=== PATIENT | male | born 1940 | race Caucasian/White ===

== ENCOUNTER 2017-02-10 13:05 | Emergency (ER) | payer MEDICARE, BC ==
--- NOTE | 2017-02-10 14:37 | UC ---
Respiratory Complaint HPI - HPI Summary HPI Summary: Started URI Sx last weekend. Started tapering off, but the last 4 days has felt a "gurgle" in the right anterior lung field and then will subsequently cough up some white mucus and the "gurgling" will go away. - History of Current Complaint Chief Complaint: UCRespiratory Stated Complaint: ELVER, COUGH Time Seen by Provider: 02/10/17 14:31 Hx Obtained From: Patient Onset/Duration: Gradual Onset, Lasting Weeks - 1, Still Present - with ongoing cough. Severity Initially: Moderate Severity Currently: Moderate Character: Cough: Productive Aggravating Factors: Nothing Alleviating Factors: Nothing Associated Signs And Symptoms: Positive: URI, Nasal Congestion. Negative: Dyspnea, Fever, Chills, Pleuritic Chest Pain, Wheezing, Hemoptysis, Hoarseness, Sinus Discomfort - Allergies/Home Medications Allergies/Adverse Reactions: Allergies Allergy/AdvReac Type Severity Reaction Status Date / Time Sulfa Antibiotics Allergy Unknown Verified 02/10/17 14:15 Reaction Details Home Medications: Home Medications Hydrochlorothiazide TAB* [Hydrodiuril TAB*] 25 mg PO DAILY 02/10/17 [History Confirmed 02/10/17] Irbesartan (NF) [Avapro (NF)] 300 mg PO DAILY 02/10/17 [History Confirmed ] Minocycline (NF) 100 mg PO BID 02/10/17 [History Confirmed 02/10/17] Omeprazole CAP* [Prilosec CAP* 20 MG] 20 mg PO DAILY 02/10/17 [History Confirmed 02/10/17] Simvastatin TAB(NF) [Zocor 20 MG (NF)] 20 mg PO DAILY 02/10/17 [History Confirmed 02/10/17] PMH/Surg Hx/FS Hx/Imm Hx Endocrine History: Dyslipidemia Cardiovascular History: Hypertension - Surgical History Surgical History: Yes Surgery Procedure, Year, and Place: R shoulder - Family History Known Family History: Positive: Diabetes Negative: Cardiac Disease, Hypertension - Social History Occupation: Retired Lives: With Family Alcohol Use: Occasionally Substance Use Type: None Smoking Status (MU): Former Smoker When Did the Patient Quit Smoking/Using Tobacco: 35 years ago Review of Systems ENT: Nasal Discharge Respiratory: Cough Is Patient Immunocompromised?: No All Other Systems Reviewed And Are Negative: Yes Physical Exam Triage Information Reviewed: Yes Appearance: Well-Appearing, No Pain Distress, Well-Nourished Vital Signs: Initial Vital Signs Temp 98.1 F 02/10/17 14:17 Pulse 65 02/10/17 14:17 Resp 18 02/10/17 14:17 BP 146/59 02/10/17 14:17 Pulse Ox 99 02/10/17 14:17 Vital Signs Reviewed: Yes Eyes: Positive: Conjunctiva Clear ENT: Positive: Pharynx normal, TMs normal Neck exam: Normal Respiratory: Positive: Wheezing - inspiratory wheezes predominantly on the right side, both anterior and posterior. Cardiovascular Exam: Normal Musculoskeletal Exam: Normal Neurological Exam: Normal Psychological Exam: Normal Skin Exam: Normal UC Diagnostic Evaluation - Laboratory O2 Sat by Pulse Oximetry: 99 Respiratory Course/Dx - Differential Dx/Diagnosis Differential Diagnosis/HQI/PQRI: Asthma, Lower Resp Infection, Sinusitis Provider Diagnoses: Acute URI. Acute bronchospasm Discharge - Discharge Plan Condition: Stable Disposition: HOME Prescriptions: predniSONE TAB* [Deltasone TAB*] 20 mg PO DAILY #18 tab Patient Education Materials: Upper Respiratory Infection (ED), Bronchospasm (ED ), Prednisone (By mouth) Referrals: Arie MOORE,Alber Liu [Primary Care Provider] -
--- NOTE | 2017-02-10 15:26 | RAD ---
INDICATION: Right-sided wheezing COMPARISON: None TECHNIQUE: PA and lateral views of the chest were obtained. FINDINGS: The heart and mediastinum are normal in size and contour. Coarse density overlying the right hilum measuring 9 x 20 mm in the AP view is consistent with calcified granulomas of right hilar lymph nodes. The lungs are grossly clear. There is no evidence of large pleural effusion. Visualized bones are normal for the patient's age. There is no radiographic evidence of free air beneath the diaphragm IMPRESSION: No radiographic evidence of acute cardiopulmonary disease.
== END 2017-02-10 15:12 | disposition home or self-care (01) ==
LOC: UCCORT 13:05
DX: J06.9 Acute upper respiratory infection, unspecified (principal); J98.01 Acute bronchospasm; E78.5 Hyperlipidemia, unspecified; I10 Essential (primary) hypertension; Z88.2 Allergy status to sulfonamides; Z87.891 Personal history of nicotine dependence
CPT/HCPCS: 71020; 99202; G0463

== ENCOUNTER 2017-07-27 12:17 | Emergency (ER) | payer MEDICARE, BC ==
[2017-07-27 12:42] VITALS: BP 138/58
--- NOTE | 2017-07-27 12:54 | UC ---
Back Pain HPI - HPI Summary HPI Summary: 76 y/o male presents to the urgent care c/o left side mid back pain for the past 2 weeks. Pt states pain is sharp 8/10 and intermittent and triggered by movement and radiating to the left side of ribs. He thought it was triggered by mowing his yard, but now is disturbing his sleep. When he turns pain is exacerbated. He has not taking anything to alleviate symptoms. Pt denies any trauma or Hx of back problems. Pt denies numbness or tingling over the extremities, flank pain, urinary symptoms, saddle anesthesia, urinary or fecal incontinences, SOB, chest pain, abdominal pain, N/V/D. - History of Current Complaint Hx Obtained From: Patient Onset/Duration: Gradual Onset, Lasting Weeks - last wekk Timing: Intermittent, Lasting Weeks - 2 weeks Severity Initially: Mild Severity Currently: Moderate Pain Intensity: 8 Pain Scale Used: 0-10 Numeric Back Pain: Is Discrete @ - LF side of mid back Character: Sharp, Spasmodic Aggravating Factor(s): Movement Alleviating Factor(s): Rest Associated Signs And Symptoms: Positive: Negative. Negative: Swelling, Redness , Bruising, Fever, Weakness, Numbness, Tingling, Abdominal Pain, Flank Pain, Bladder Incontinence, Bowel Incontinence, Weight Loss, Pain with Weight Bearing - Risk Factors AAA Risk Factors: Negative TAD Risk Factors: Negative Cauda Equina Risk Factors: Negative Epidural Abscess Risk Factors: Negative <Alyssa Wagner - Last Filed: 07/27/17 14:32> <Lennie Kirkland - Last Filed: 07/29/17 09:34> - History of Current Complaint Chief Complaint: UCBackPain Stated Complaint: BACK PAIN Time Seen by Provider: 07/27/17 12:53 - Allergies/Home Medications Allergies/Adverse Reactions: Allergies Allergy/AdvReac Type Severity Reaction Status Date / Time Sulfa (Sulfonamide Allergy Unknown Verified 07/27/17 12:45 Antibiotics) Reaction Details PMH/Surg Hx/FS Hx/Imm Hx Previously Healthy: Yes Endocrine History: Dyslipidemia Cardiovascular History: Hypertension GI/ History: Gastroesophageal Reflux - Surgical History Surgical History: Yes Surgery Procedure, Year, and Place: R shoulder - Family History Known Family History: Positive: Diabetes Negative: Cardiac Disease, Hypertension - Social History Occupation: Employed Part-time Lives: With Family Alcohol Use: Occasionally Substance Use Type: None Smoking Status (MU): Former Smoker When Did the Patient Quit Smoking/Using Tobacco: 35 years ago <Alyssa Wagner - Last Filed: 07/27/17 14:32> Review of Systems Constitutional: Negative Skin: Negative Eyes: Negative ENT: Negative Respiratory: Negative Cardiovascular: Negative Gastrointestinal: Negative Genitourinary: Negative Motor: Negative Neurovascular: Negative Musculoskeletal: Decreased ROM - mid back, Other: - acute left side mid back pain Neurological: Negative Psychological: Negative Is Patient Immunocompromised?: No All Other Systems Reviewed And Are Negative: Yes <Alyssa Wagner - Last Filed: 07/27/17 14:32> Physical Exam - Summary Physical Exam Summary: Vital Signs Reviewed: Yes Appearance: Well-Appearing, Well-Nourished, male sitting in the examining table w/o any apparent distress. Eyes: Positive: Conjunctiva Clear - PERRLA, EOMI. ENT: Positive: Normal ENT inspection, Hearing grossly normal, Pharynx normal, TMs normal, Uvula midline Neck: Positive: Supple, Nontender, No Lymphadenopathy Respiratory: Positive: Chest non-tender, Lungs clear, Normal breath sounds, No respiratory distress Cardiovascular: Positive: RRR, No Murmur, Pulses Normal, Brisk Capillary Refill Abdomen Description: Positive: Nontender, No Organomegaly, Soft. Negative: CVA Tenderness (R), CVA Tenderness (L) Bowel Sounds: Positive: Present Musculoskeletal: Positive: Strength Intact, BACK: Patient walked into the urgent care room with symmetric ambulation, No signs of limping, antalgic, able to bear weight. No signs of trauma, No masses palpated. Point tenderness at the left side of mid back around Ribs 10 and 12. No CVAT, no flank ecchymosis . No sacroiliac notch tenderness, No saddle anesthesia.ROM: limited due to pain, Straight Leg Raise: negative. Patellar reflexes: brisk, symmetric Muscle strength lower extremities. Dorsiflexion/ plantar flexion of ankles. Heel/ toe walk. Lower extremities: Femoral, popliteal, posterior tibial, and dorsalis pedis pulses WNL. Pt refuse rectal exam Neurological: Positive: Alert, Muscle Tone Normal Psychological Exam: Normal Skin Exam: Normal Triage Information Reviewed: Yes Vital Signs: Initial Vital Signs Temp 98.1 F 05/19/18 12:37 Pulse 61 07/27/17 12:37 Resp 17 07/27/17 12:37 BP 138/58 07/27/17 12:37 Pulse Ox 99 07/27/17 12:37 <Deshpande-LaytonAlyssa davalos - Last Filed: 07/27/17 14:32> Vital Signs: Initial Vital Signs Temp 98.1 F 07/27/17 12:37 Pulse 61 07/27/17 12:37 Resp 17 07/27/17 12:37 BP 138/58 07/27/17 12:37 Pulse Ox 99 07/27/17 12:37 <Lennie Kirkland - Last Filed: 07/29/17 09:34> Back Pain Course/Dx - Course Course Of Treatment: 76 y/o male presents to the urgent care c/o left side mid back pain for the past 2 weeks. Pt states pain is sharp 8/10 and intermittent and triggered by movement and radiating to the left side of ribs. He thought it was triggered by mowing his yard, but now is disturbing his sleep. When he turns pain is exacerbated. He has not taking anything to alleviate symptoms. Pt denies any trauma or Hx of back problems. Pt denies numbness or tingling over the extremities, flank pain, urinary symptoms, saddle anesthesia, urinary or fecal incontinences, SOB, chest pain, abdominal pain, N/V/D. Hx obtained. Pt w/ point tenderness at the left side of mid back around Ribs 10 and 12 the rest of PE is WNL. Thoracolumbar X-ray and LF ribs X-ry ordered, Impression: Multilevel degenerative disc disease and osteorthritis, no pneumothrorax o rib fracture observed as per radiologist. Pt Rx Naproxen PO, flexeril PO and given a PT referral. Patient was instructed to the f/u [facility] orthopedic Dr Rodriguez in 1 week if symptoms do not improve or worsen. Patient understands and agrees. Patient is able to ambulate freely w/o aid or limp. Plan of care was discussed with the patient and patient understands and agrees. All questions were answered at patient satisfaction. Pt left clinic hemodynamically stable. - Differential Dx/Diagnosis Differential Diagnosis/HQI/PQRI: Arthritis, Fracture, Herniated Disc, Strain, Sprain Provider Diagnoses: 1- Acute mid back pain. 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 3- Muscle spams <Aylssa Wagner - Last Filed: 07/27/17 14:32> Discharge - Sign-Out/Discharge Documenting (check all that apply): Discharge/Admit/Transfer - D/C home - Billing Disposition and Condition Condition: STABLE Disposition: HOME <Alyssa Wagner - Last Filed: 07/27/17 14:32> - Billing Disposition and Condition Condition: STABLE Disposition: HOME <Lennie Kirkland - Last Filed: 07/29/17 09:34> - Discharge Plan Condition: Stable Disposition: HOME Prescriptions: Cyclobenzaprine TAB* [Flexeril 10 MG TAB*] 10 mg PO TID PRN #15 tab PRN Reason: Spasms - Back Naproxen TAB* [Naprosyn 250 mg TAB*] 250 mg PO Q8H PRN #30 tab PRN Reason: Pain Patient Education Materials: Back Pain (ED), Degenerative Disc Disease (ED) Referrals: Surendra Rodriguez MD [Medical Doctor] - 1 Week Carlin Ramsey DO [Primary Care Provider] - 1 Week Additional Instructions: 1- Please take Naproxen PO as directed after meals for pain. 2- Take Flexeril PO as directed for muscle spasm. Please do not drive while taking the medication. 3- Wear a back support. Avoid strenuous exercise of heavy lifting. 4- Please follow up with Orthopedic Dr Rodriguez or your PCP in 1 week if not improvement of symptoms, for further management. Attestation Statement User Type: Provider - I was available for consult. This patient was seen by the ANNAMARIE. The patient was not presented to, seen by, or examined by me. -Jes <Lennie Kirkland - Last Filed: 07/29/17 09:34>
--- NOTE | 2017-07-27 14:03 | RAD ---
HISTORY: Acute left lower rib pain COMPARISONS: None VIEWS: 6, Frontal view of the chest with frontal and oblique views of the left hemithorax FINDINGS: There is no displaced rib fracture or pneumothorax. The visualized lungs are clear. IMPRESSION: NO DISPLACED RIB FRACTURE OR PNEUMOTHORAX.
--- NOTE | 2017-07-27 14:04 | RAD ---
HISTORY: Acute mid back pain COMPARISONS: Chest x-ray dated February 10, 2017 VIEWS: 2, Frontal and lateral views of the thoracolumbar junction . FINDINGS: ALIGNMENT: The alignment is normal. VERTEBRAL BODIES: There is multilevel anterolateral marginal osteophyte formation. The vertebral bodies are preserved in height. JOINTS: There is facet osteoarthritis. INTERVERTEBRAL DISCS: There is diffuse loss of intervertebral disc height. SOFT TISSUE: Unremarkable OTHER: The visualized lungs are clear. IMPRESSION: DEGENERATIVE DISC DISEASE AND OSTEOARTHRITIS.
== END 2017-07-27 14:44 | disposition home or self-care (01) ==
LOC: UCCORT 12:17
DX: M54.6 Pain in thoracic spine (principal); M47.9 Spondylosis, unspecified; M62.830 Muscle spasm of back; Z87.891 Personal history of nicotine dependence; Z88.2 Allergy status to sulfonamides
CPT/HCPCS: 72080; 99212; G0463

== ENCOUNTER 2019-03-09 13:47 | Emergency (ER) | payer MEDICARE, BC ==
--- OUTSIDE RECORDS SUMMARY | 2019-03-09 13:53 | XMS REPORT | Continuity of Care Document ---
:1940 External Reference #:[id number] Author Name Carlin Santizo DO Address [address] [place] [id number] Problems Active Problems Provider Date Benign essential hypertension Alber Sargent MD Onset: 05/07/2005 Mixed hyperlipidemia Alber Sargent MD Onset: 05/07/2005 Mitral valve disorder Alber Sargent MD Onset: 05/07/2005 Essential hypertension Jeremy Lutz MD Onset: 01/25/2015 Ischemic heart disease screening Jeremy Lutz MD Onset: 01/21/2013 Pure hypercholesterolemia Jeremy Lutz MD Onset: 01/21/2013 Mitral leaflet abnormality Efe Green MD Onset: 09/07/2016 Social History Type Date Description Comments Sex Unknown ETOH Use Occasionally consumes alcohol Tobacco Use Start: Unknown End: Unknown Patient is a former smoker Smoking Status Reviewed: 01/30/19 Patient is a former smoker Allergies, Adverse Reactions, Alerts Active Allergies Reaction Severity Comments Date Sulfa Drugs 07/10/2014 Medications Active Medications SIG Qnty Indications Ordering Date Provider Sildenafil Citrate Take 1 Tablet 6tabs Santizo, 04/21/2018 100mg Tablets By Mouth Every Carlin, DO Day as Needed Omeprazole Take 1 Capsule 180caps Santizo, 02/21/[address] Twice A Day DO Carlin Irbesartan take 1 tablet 90tabs Santizo, 07/13/2012 300mg Tablets daily DO Carlin Hydrochlorothiazide take 1 tablet 90tabs Santizo, 07/13/2012 25mg Tablets every morning DO Carlin Simvastatin take 1 tablet 90tabs Santizo, 07/21/2011 20mg Tablets daily DO Carlni Minocycline HCL 1 by mouth 60tabs Santizo, 100mg Tablets twice a day as Carlin, DO needed skin outbreaks Restasis 1 drop in each Unknown eye twice a day Vitamin B12 1 by mouth Unknown 3000mcg Tablets Sub every day History Medications Alprazolam 1-2 by mouth every 30tabs Carlin Santizo, 11/22/2018 - 0.25mg 6 hours as needed DO 01/30/2019 Tablets Dispers for anxiety Fluorouracil apply Daily To Nghia Somers, 11/18/2018 - 5% Cream Scalp 01/30/2019 Albuterol Sulfate HFA Use 2 Puffs By 42.5units Carlin Santizo, 2018 - Mouth Every 4 DO 11/22/2018 108(90Base) mcg/Act Hours as Needed Aerosol For Shortness Of Breath Immunizations CPT Code Status Date Vaccine Reaction Lot # [id number] Given 12/08/2018 Fluzone Highdose Age 65 And Over Preservative & Antibiotic Free 49034 Given 05/25/2018 Shingrix (Shingles) Zoster Vaccine HZV, Recombinant, Subunit, Adj [id number] Given 11/05/2017 Flu Vaccine NOS 44123 Given 11/05/2017 Fluzone Highdose Age 65 And Over Preservative & Antibiotic Free 30013 Given 12/12/2016 Fluzone Highdose Age 65 And Over Preservative & Antibiotic Free 98583 Given 01/08/2016 Fluzone Highdose Age 65 And Over [facility] Preservative & Antibiotic Free 30521 Given 08/15/2015 Prevnar 13 Pneumococal Conjugate Vaccine [id number] 74756 Given 12/08/2012 Afluria Or Fluvirin Flu Vac Intramuscular 45551 Given 12/14/2011 Afluria Or Fluvirin Flu Vac Intramuscular 79554 Given 01/11/2011 Tetanus And Diptheria Toxoid 7 Years And Older Preserv Free 45954 Given 11/17/2010 Afluria Or Fluvirin Flu Vac Intramuscular 17653 Given 04/22/2010 Zoster (Zostavax) 00506 Given 01/05/2010 Pneumococcal 23 Immunization Adult Or Immunosuppressed Patient 02575 Given 01/05/2010 Afluria Or Fluvirin Flu Vac Intramuscular 03334 Given 12/20/2008 Afluria Or Fluvirin Flu Vac Intramuscular 82329 Given 01/15/2008 Afluria Or Fluvirin Flu Vac Intramuscular 46179 Given 12/17/2006 Afluria Or Fluvirin Flu Vac Intramuscular 38125 Given 01/09/2006 Afluria Or Fluvirin Flu Vac Intramuscular 52711 Given 01/09/2006 Afluria Or Fluvirin Flu Vac Intramuscular Vital Signs Date Vital Result Comment 01/30/2019 2:09pm Weight 203.00 lb Heart Rate 54 /min BP Systolic 138 mmHg BP Diastolic 74 mmHg Respiratory Rate 18 /min Height 67.25 inches 5'7.25" BMI (Body Mass Index) 31.6 kg/m2 11/22/2018 8:57am Weight 204.00 lb Heart Rate 55 /min BP Systolic 138 mmHg BP Diastolic 70 mmHg Respiratory Rate 16 /min Height 67.25 inches 5'7.25" O2 % BldC Oximetry 98 % BMI (Body Mass Index) 31.7 kg/m2 Results Test Acquired Date Facility Test Result H/L Range Note CBC with Auto Diff-fcmg 01/23/2019 [facility] WBC 7.2 K/uL 4.1-11.0 RBC 5.60 M/uL 4.60-6.10 Hemoglobin 13.5 gm/dL 13.5-18.0 Hematocrit 41.8 % 41.0-53.0 MCV 74.6 fL Low 80.0-97.0 MCH 24.1 pg Low 27.0-32.0 MCHC 32.4 g/dL 32.0-36.0 RDW 15.3 % High 11.5-14.5 PLT Count 320 K/ul 140-400 MPV 9.0 FL 7.1-10.7 Neutrophil 58.6 % 35.0-75.0 Lymphocyte 27.8 % 16.0-52.0 Monocyte 10.9 % High 2.0-10.0 Eosinophil 2.4 % 0.0-5.0 Basophil 0.3 % 0.0-4.0 Abs Neutrophils 4.2 K/uL 2.1-8.0 Abs Lymphocytes 2.0 K/uL 0.8-5.5 Abs Monocytes 0.8 K/uL 0.1-1.0 Abs Eosinophils 0.2 K/uL 0.0-0.5 Abs Basophils 0.0 K/uL 0.0-0.3 Basic (BMP) 01/23/2019 [facility] Sodium 140 mmol/L 135-146 1 Potassium 3.8 mmol/L 3.5-5.2 Chloride# 99 mmol/L 97-110 2 Carbon Dioxide 34 mmol/L 24-34 Glucose 93 mg/dL 70-105 BUN 12 mg/dL 6-26 Creatinine 1.0 mg/dL 0.5-1.4 Calcium 9.0 mg/dL 8.5-10.5 3 Female Egfr 52 Low >60 4 Male Egfr 70 >60 5 Anion Gap 7 mmol/L 5-15 6 Laboratory test finding 01/23/2019 [facility] TSH 1.15 uIU/mL 0.35-4.94 Lipid Treatment 01/23/2019 [facility] Cholesterol 137 mg/dL 50-199 Triglycerides 91 mg/dL 30-200 HDL 41 mg/dL 29-71 7 Chol/ HDL Ratio 3.4 ratio Low 4.0-6.7 VLDL 18 mg/dL 2-29 LDL (Calc) 78 mg/dL 20-99 8 Alt 14 U/L 3-42 Ast 14 U/L 8-42 Laboratory test finding 01/23/2019 [facility] Magnesium 1.5 mg/dL 1.5-2.7 PSA 0.880 ng/mL 0.000-4.000 9 Vitamin B12 675 pg/mL 180-914 Laboratory test 10/30/2018 [facility] D-Dimer, 0.90 ug/mL 10, 11 finding Lab Dept Quantitative [phone] Troponin-I < 0.015 ng/mL 12 CBS W/Automated 10/30/2018 [facility] White 8.0 K/uL Normal 3.4-10.5 Diff Lab Dept Blood [phone] Count Red Blood Count 5.28 M/uL Normal 4.20-5.80 Hemoglobin 13.1 gm/dL Normal 12.8-17.0 Hematocrit 40.3 % Normal 38.0-48.0 Mean Cell Volume 76.3 fl Low 80.0-96.0 Mean Corpuscular HGB 24.8 pg Low 27.0-33.0 Mean Corpuscular HGB Conc 32.5 g/dL Normal 31.7-36.0 Platelet Count 365 K/uL High 155-360 Red Cell Distri Width SD 39.7 fl Normal 36-51 Red Cell Distri Width %CV 14.6 % Normal 11.6-15.8 Mean Platelet Volume 11.2 fl High 6.6-10.6 Neut% 61.6 % Normal 33.0-73.0 Lymph % 25.9 % Normal 20.0-42.0 Campbell % 9.4 % Normal 0.0-10.0 Eo% 2.1 % Normal 0.0-6.6 Bas% 0.5 % Normal 0.0-1.1 Immature Grans 0.5 % Normal 0.0-5.0 NRBC % 0.0 /100WBC < 10/ 100 WBC Neut# 4.91 K/uL Normal 1.8-7.0 Lymph # 2.07 K/uL Normal 1.0-4.0 Campbell # 0.75 K/uL Normal 0.0-0.8 Eos # 0.17 K/uL Normal 0.0-0.5 Baso # 0.04 K/uL Normal 0.0-0.1 Immature Grans Absolute 0.04 K/uL NRBC # 0.00 K/uL Laboratory test 10/30/2018 [facility] BUN 13 mg/dL Normal 7-18 13 finding Lab Dept [phone] Creatinine 1.1 mg/dL Normal 0.6-1.3 14 1 Updated reference range on new analyzer 2 Updated reference range on new analyzer 3 Updated reference range 07-09-2018 4 Concerning GFR Guidelines for Americans: Normal function or mild renal disease, if clinically at risk: >/= 60 mL/min Moderately decreased: 30-59 Severely decreased: 15-29 Renal failure: <15 There is reduced accuracy above 60ml/min/1.73 m squared, but the numeric value may be clinically useful in the near 60 range 5 Concerning GFR Guidelines: Normal function or mild renal disease, if clinically at risk: >/= 60 mL/min Moderately decreased: 30-59 Severely decreased: 15-29 Renal failure: <15 There is reduced accuracy above 60ml/min/1.73 m squared, but the numeric value may be clinically useful in the near 60 range Glomerular Filtration Rate (GFR) is estimated based on the CKD-EPI equation, which assumes a steady state for creatinine as recommended by the National Kidney Disease Education Program in conjunction with the National Institutes of Health and the National Kidney Foundation. Clinical conditions in which it may be necessary to measure GFR by using clearance methods include extremes of age and body size, severe malnutrition or obesity, diseases of skeletal muscle, paraplegia or quadriplegia, vegetarian diet, rapidly changing kidney function, and calculation of the dose of potentially toxic drugs that are excreted by the kidneys. 6 Updated Reference Range 7 Per NCEP ATP III Guidelines: Results lower than 40 mg/dL are suggestive of increased risk for coronary artery disease. Results > or = to 60 mg/dL are considered a negative risk factor. 8 Per NCEP ATP III Guidelines: Normal Population <130 Patients with medical conditions: CHD/DM Optimal: <100 Borderline high: 130-159 High: 160-189 Very high: >189 9 Beginning 05/06/06 PSA values assayed at [facility] uses chemiluminescence methodology manufactured by [employer] for use on the DXI analyzer. Values obtained with different assay methods or kits can not be used interchangeably. Serum PSA measurement is not an absolute test for malignancy. The PSA value should be used in conjunction with information available from clinical evaluation and other diagnostic procedures. 10 R06.02 11 <=0.49 ug/mL - Low likelihood of DIC, DVT or Pulmonary Embolism >0.49 ug/mL - Additional testing should be done to rule out DIC, DVT, or Pulmonary embolism as clinically indicated. ([facility] has established a 97.89% negative predictive value for thrombotic disease when a cutoff value of 0.5 ug/mL is used.) 12 0.0 - 0.045 ng/mL: Normal 0.046 - 0.5 ng/mL: Suggestive 0.6 - 1.5 ng/mL: Consistent [address] SANTIZO [address] SANTIZO Procedures Date Code Description Status 11/22/2018 13002 Measure Blood Oxygen Level Single Determination Completed 10/14/2018 31268115 Colonoscopy Completed 12/01/2013 26147100 Colonoscopy Completed Medical Devices Description No Information Available Encounters Type Date Location Provider Dx Diagnosis Office Visit 11/22/2018 9:00a Carlin Haque DO R06.02 Shortness of breath E66.9 Obesity, unspecified F41.9 Anxiety disorder, unspecified Z68.31 Body mass index (BMI) 31.0-31.9, adult Office Visit 10/30/2018 1:15p Carlin Haque DO R06.02 Shortness of breath E66.9 Obesity, unspecified 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 Z68.31 Body mass index (BMI) 31.0-31.9, adult Assessments Date Code Description Provider 01/30/2019 Z00.00 Encounter for general adult medical Carlin Santizo, examination without abnormal findings 01/30/2019 E78.2 Mixed hyperlipidemia Carlin Santizo, 01/30/2019 K21.9 Gastro-esophageal reflux disease without Carlin Santizo DO esophagitis 01/30/2019 I34.1 Nonrheumatic mitral (valve) prolapse Carlin Santizo, DO 01/30/2019 G60.9 Hereditary and idiopathic neuropathy, Carlin Santizo, unspecified 01/30/2019 J31.0 Chronic rhinitis Carlin Santizo, DO 01/30/2019 D12.6 Benign neoplasm of colon, unspecified Carlin Santizo, DO 01/30/2019 F52.21 Male erectile disorder Carlin Santizo, 01/30/2019 M25.511 Pain in RIGHT shoulder Carlin Santizo, 01/30/2019 E66.9 Obesity, unspecified Carlin Santizo, DO 01/30/2019 E53.9 Vitamin B deficiency, unspecified Carlin Santizo, DO 01/30/2019 R06.02 Shortness of breath Carlin Santizo, DO 01/30/2019 F41.9 Anxiety disorder, unspecified Carlin Santizo, DO 01/30/2019 Z68.31 Body mass index (BMI) 31.0-31.9, adult Carlin Santizo DO 01/23/2019 I10 Essential (primary) hypertension Carlin Santizo DO 01/23/2019 I10 Essential (primary) hypertension Schedule, Laboratory 01/23/2019 K21.9 Gastro-esophageal reflux disease without Carlin Santizo DO esophagitis 01/23/2019 K21.9 Gastro-esophageal reflux disease without Schedule, Laboratory esophagitis 01/23/2019 Z12.5 Encounter for screening for malignant Carlin Santizo DO neoplasm of prostate 01/23/2019 Z12.5 Encounter for screening for malignant Schedule, Laboratory neoplasm of prostate 01/23/2019 D64.9 Anemia, unspecified Schedule, Laboratory 01/23/2019 I10 Essential (primary) hypertension [facility] 01/23/2019 K21.9 Gastro-esophageal reflux disease without [facility] esophagitis 01/23/2019 Z12.5 Encounter for screening for malignant [facility] neoplasm of prostate 01/23/2019 D64.9 Anemia, unspecified [facility] 11/22/2018 R06.02 Shortness of breath Carlin Santizo, DO 11/22/2018 E66.9 Obesity, unspecified SantizoCarlin benjamin, DO 11/22/2018 F41.9 Anxiety disorder, unspecified SantizoCarlin benjamin, DO 11/22/2018 Z68.31 Body mass index (BMI) 31.0-31.9, adult Carlin Santizo, DO 10/30/2018 R06.02 Shortness of breath Carlin Santizo, DO 10/30/2018 R06.02 Shortness of breath Carlin Santizo, DO 10/30/2018 E66.9 Obesity, unspecified SantizoCarlin benjamin, DO 10/30/2018 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 Patient will continue with his current regimen. Encouraged to maintain a low cholesterol diet and a regular exercise regimen. We will continue to monitor.Follow up:Get labs done in 6 months, then see me a few days iicxtF59.9 Gastro-esophageal reflux disease without esophagitisComments:Patient was advised to continue with current medication. Avoid spicy food and control diet as advised. Will continue to monitor.I34.1 Nonrheumatic mitral (valve) lagxqzvjV88.9 Hereditary and idiopathic neuropathy, lluevzcguukT83.0 Chronic iuerurlfR95.6 Benign neoplasm of colon, mriitdmowbgY88.21 Male erectile cdkohfrtR53.511 Pain in RIGHT nphungmsJ53.9 Obesity, unspecifiedComments:The patient had lost around 1lbs of body weight since the previous visit and he currently weighs around 203lbs. A detailed discussion was had with the patient regarding his body weight and BMI. He was made aware about the health hazards of obesity including diabetes, hypertension, cardiac diseases, and other various risk factors. He was advised to maintain a healthy and low-calorie diet and a regular exercise regimen which will help him lose weight. Greater than 10 minutes spent on counseling.E53.9 Vitamin B deficiency, eqpcyonwohoI97.02 Shortness of breathComments:Appears to be improved. It could have been due to his anxiety. We will continue to monitor.F41.9 Anxiety disorder , fjebfpwulkqM34.31 Body mass index (BMI) 31.0-31.9, adultComments:The patient' s BMI is at 31.6. The patient was strongly encouraged to lose weight with low- calorie diet and exercises. We will continue to monitor weight and BMI periodically. Functional Status Functional Condition Comment Date Status GLASSES Active Mental Status Description No Information Available Referrals Description No Information Available
--- OUTSIDE RECORDS SUMMARY | 2019-03-09 13:53 | XMS REPORT | Continuity of Care Document ---
:1940 External Reference #:[id number] Author Name Musa Chappell PA-C Address [address], [place] [address] Care Team Providers Name Role Phone Nagi Goncalves DPM - Student in an Care Team Information Corrections Specialist [phone] Organized Health Care Education/Training Program Carlin Ramsey DO - Family Medicine Care Team Information Corrections Specialist [phone] Problems Description No Information Available Social History Type Date Description Comments Sex Unknown Cigarette Use Quit 35 Years Ago Tobacco Use Start: Unknown Currently Smokes an Occasional Cigar Tobacco Use Start: Unknown Never Smoked A Pipe Smokeless Tobacco Never Used Smokeless Tobacco ETOH Use Currently consumes alcohol Tobacco Use Start: Unknown End: Unknown Patient is a former smoker Allergies, Adverse Reactions, Alerts Active Allergies Reaction Severity Comments Date Sulfa Antibiotics 08/19/2012 Medications Active Medications SIG Qnty Indications Ordering Provider Date Omeprazole 1 po bid 180caps Artemio Augustine, 08/19/[address] Sommer Hydrochlorothiazide 1 po qd 30tabs Unknown 25mg Tablets Simvastatin 1 po qd 30tabs Unknown 20mg Tablets Irbesartan 1 po qd 90tabs Unknown 300mg Tablets Immunizations Description No Information Available Vital Signs Date Vital Result Comment 09/28/2014 1:49pm Weight 208.00 lb Heart Rate 88 /min BP Systolic Sitting 132 mmHg BP Diastolic Sitting 88 mmHg 08/19/2012 3:20pm Heart Rate 88 /min BP Systolic Sitting 130 mmHg BP Diastolic Sitting 80 mmHg Results Description No Information Available Procedures Date Code Description Status 12/24/2018 48209 Destruction Malig Lesion .6-1CM Trunk/Arms/Legs Completed 11/18/2018 83081 Destruction Of Benign Lesions Any Method 1-14 lesions Completed 11/18/2018 32981 Tangential Biopsy Of Skin, Single Lesion Completed Medical Devices Description No Information Available Encounters Type Date Location Provider Dx Diagnosis Office Visit 12/06/2018 [facility] Musa Chappell, H00.015 Hordeolum 10:01a Walk-in at [facility] externum left Drugs lower eyelid Office Visit 12/02/2018 [facility] Dermatology AT Nghia Somers MD L24.4 Irritant contact 4:20p Dayron dermatitis due to drugs in contact w skin L57.0 Actinic keratosis Office Visit 11/18/2018 3:10p [facility] Dermatology AT Nghia Somers, L56.8 Oth acute skin Dayron MOORE changes due to ultraviolet radiation L57.0 Actinic keratosis B07.8 Other viral warts L53.8 Other specified erythematous conditions R23.8 Other skin changes Z78.9 Other specified health status C44.519 Basal cell carcinoma of skin of other part of trunk Assessments Date Code Description Provider 12/24/2018 C44.519 Basal cell carcinoma of skin of other part of Nghia Somers MD trunk 12/06/2018 H00.015 Hordeolum externum left lower eyelid Musa Chappell PA-C 12/02/2018 L24.4 Irritant contact dermatitis due to drugs in Nghia Somers MD contact with skin 12/02/2018 L57.0 Actinic keratosis Nghia Somers MD 11/18/2018 L56.8 Other specified acute skin changes due to Nghia Somers MD ultraviolet radiation 11/18/2018 L57.0 Actinic keratosis Nghia Somers MD 11/18/2018 B07.8 Other viral warts Nghia Somers MD 11/18/2018 L53.8 Other specified erythematous conditions Nghia Somers MD 11/18/2018 R23.8 Other skin changes Nghia Somers MD 11/18/2018 Z78.9 Other specified health status Nghia Somers MD 11/18/2018 C44.519 Basal cell carcinoma of skin of other part of Nghia Somers MD trunk Plan of Treatment Future Appointment(s):07/21/2019 2:00 pm - Nghia Somers MD at [facility] Dermatology AT Bqiurvfi15/28/2019 - MIRNA Dockery-CH00.015 Hordeolum externum left lower eyelidFollow up:Follow up: Start warm compresses over the eye 4x per day Follow up with your dermatology doctor at your next appointment. Should your eye become more painful, swollen, red, or should you notice anydischarge, fevers , chills or vision changes please go to the ER. Functional Status Description No Information Available Mental Status Description No Information Available Referrals Description No Information Available
--- OUTSIDE RECORDS SUMMARY | 2019-03-09 13:53 | XMS REPORT | Continuity of Care Document ---
:1940 External Reference #:[id number] Author Name Carlin Santizo DO Address [address] [place] [id number] Problems Active Problems Provider Date Benign essential [...] 90tabs Santizo, 07/21/2011 20mg Tablets daily DO Carlin Minocycline HCL 1 by mouth 60tabs Santizo, [...] Code Status Date Vaccine Reaction Lot # [id number] Given 12/08/2018 Fluzone Highdose Age 65 And Over Preservative & Antibiotic Free 17857 Given 05/25/2018 Shingrix (Shingles) Zoster Vaccine HZV, Recombinant, Subunit, Adj [id number] Given 11/05/2017 Flu Vaccine NOS 80584 Given 11/05/2017 Fluzone Highdose Age 65 And Over Preservative & Antibiotic Free 21769 Given 12/12/2016 Fluzone Highdose Age 65 And Over Preservative & Antibiotic Free 99735 Given 01/08/2016 Fluzone Highdose Age 65 And Over [facility] Preservative & Antibiotic Free 29716 Given 08/15/2015 Prevnar 13 Pneumococal Conjugate Vaccine [id number] 99561 Given 12/08/2012 Afluria Or Fluvirin Flu Vac Intramuscular 45740 Given 12/14/2011 Afluria Or Fluvirin Flu Vac Intramuscular 72926 Given 01/11/2011 Tetanus And Diptheria Toxoid 7 Years And Older Preserv Free 72264 Given 11/17/2010 Afluria Or Fluvirin Flu Vac Intramuscular 03443 Given 04/22/2010 Zoster (Zostavax) 13397 Given 01/05/2010 Pneumococcal 23 Immunization Adult Or Immunosuppressed Patient 89651 Given 01/05/2010 Afluria Or Fluvirin Flu Vac Intramuscular 71644 Given 12/20/2008 Afluria Or Fluvirin Flu Vac Intramuscular 55555 Given 01/15/2008 Afluria Or Fluvirin Flu Vac Intramuscular 46476 Given 12/17/2006 Afluria Or Fluvirin Flu Vac Intramuscular 78304 Given 01/09/2006 Afluria Or Fluvirin Flu Vac Intramuscular 37989 Given 01/09/2006 Afluria Or Fluvirin Flu Vac [...] B12 675 pg/mL 180-914 Laboratory test 10/30/2018 [facility] D-Dimer, 0.90 ug/mL 10, 11 finding Lab Dept Quantitative [phone] Troponin-I < 0.015 ng/mL 12 CBS W/Automated 10/30/2018 [facility] White 8.0 K/uL Normal 3.4-10.5 Diff Lab Dept Blood [phone] Count Red Blood Count 5.28 M/uL Normal [...] 33.0-73.0 Lymph % 25.9 % Normal 20.0-42.0 [place]field % 9.4 % Normal 0.0-10.0 Eo% 2.1 % Normal 0.0-6.6 Bas% 0.5 % Normal 0.0-1.1 Immature Grans 0.5 % Normal 0.0-5.0 NRBC % 0.0 /100WBC < 10/ 100 WBC Neut# 4.91 K/uL Normal 1.8-7.0 Lymph # 2.07 K/uL Normal 1.0-4.0 Whitfield # 0.75 K/uL Normal 0.0-0.8 Eos # 0.17 K/uL Normal 0.0-0.5 Baso # 0.04 K/uL Normal 0.0-0.1 Immature Grans Absolute 0.04 K/uL NRBC # 0.00 K/uL Laboratory test 10/30/2018 [facility] BUN 13 mg/dL Normal 7-18 13 finding Lab Dept [phone] Creatinine 1.1 mg/dL Normal 0.6-1.3 14 1 [...] 9 Beginning 05/06/06 PSA values assayed at [facility] uses chemiluminescence methodology manufactured by [employer] for use on the DXI analyzer. Values [...] DVT, or Pulmonary embolism as clinically indicated. ([facility] has established a 97.89% negative predictive value for thrombotic disease when a cutoff value of 0.5 ug/mL is used.) 12 0.0 - 0.045 ng/mL: Normal 0.046 - 0.5 ng/mL: Suggestive 0.6 - 1.5 ng/mL: Consistent [address] SANTIZO [address] SANTIZO Procedures Date Code Description Status 11/22/2018 86289 Measure Blood Oxygen Level Single Determination Completed 10/14/2018 87257826 Colonoscopy Completed 12/01/2013 12440559 Colonoscopy Completed Medical Devices Description No Information [...] shoulder Carlin Santizo, 01/30/2019 E66.9 Obesity, unspecified Carlni Santizo, DO 01/30/2019 E53.9 Vitamin B deficiency, [...] Appointment(s):07/21/2019 8:35 am - Schedule, Laboratory at [facility]2019 1:45 pm - SantizoCarlin, DO at [facility]01/30/2019 - Carlin Santizo DOZ00.00 Encounter for general adult medical examination without abnormal ntyvpnbtK06.2 Mixed hyperlipidemiaComments:Labs reviewed with the patient in detail. Patient will continue with his current regimen. Encouraged to maintain a low cholesterol diet and a regular exercise regimen. We will continue to monitor.Follow up:Get labs done in 6 months, then see me a few days dqzbeF35.9 Gastro-esophageal reflux disease without esophagitisComments:Patient was advised to continue with current medication. Avoid spicy food and control diet as advised. Will continue to monitor.I34.1 Nonrheumatic mitral (valve) nrjlopbvH47.9 Hereditary and idiopathic neuropathy, rcjbovpxmuvJ62.0 Chronic bkakdcfyS95.6 Benign neoplasm of colon, ibxjkkesdtkV37.21 Male erectile sogdhqphS34.511 Pain in RIGHT vpzfjmzrB58.9 Obesity, unspecifiedComments:The patient had lost around 1lbs [...] minutes spent on counseling.E53.9 Vitamin B deficiency, wrfldzfqkllE21.02 Shortness of breathComments:Appears to be improved. It could have been due to his anxiety. We will continue to monitor.F41.9 Anxiety disorder , hvzcyrfcvrzO31.31 Body mass index (BMI) 31.0-31.9, adultComments:The patient' s BMI is at 31.6. The patient was strongly encouraged to lose weight with low- calorie diet and exercises. We will continue to monitor weight and BMI periodically. Functional Status Functional Condition Comment Date Status GLASSES Active Mental Status Description No Information Available Referrals Description No Information Available
--- OUTSIDE RECORDS SUMMARY | 2019-03-09 13:53 | XMS REPORT | Continuity of Care Document ---
:1940 External Reference #:[id number] Author Name Efe Oliva (transmitted by agent of provider Kelly Frankel) Address [address] [place] [phone] Care Team Providers Name Role Phone Carlin Ramsey DO - Family Medicine Care Team Information Dispatcher Service Chief Problems Active Problems Provider Date Pure hypercholesterolemia Jeremy Lutz MD Onset: 01/21/2013 Benign essential hypertension Jeremy Lutz MD Onset: 01/21/2013 Ischemic heart disease screening Jeremy Lutz MD Onset: 01/21/2013 Essential hypertension Jeremy Lutz MD Onset: 01/25/2015 Mitral leaflet abnormality Efe Oliva Onset: 09/07/2016 Preoperative cardiovascular examination Efe Oliva Onset: Mixed hyperlipidemia Efe Oliva Onset: 09/07/2016 Dietary management surveillance Efe Oliva Onset: 02/13/2019 Mitral valve disorder Meghana D Onset: 02/13/2019 Social History Type Date Description Comments Sex Unknown ETOH Use Occasionally consumes alcohol Tobacco Use Start: Unknown Patient has never smoked Allergies, Adverse Reactions, Alerts Active Allergies Reaction Severity Comments Date Sulfa Drugs 10/23/2004 Medications Active Medications SIG Qnty Indications Ordering Date Provider Simvastatin 1 po qd Jeremy Lutz 01/21/2013 20mg Tablets MD Julio Cesar Hydrochlorothiazide 1 po qd 90tabs Negar, 01/21/2013 25mg Tablets REUBEN Avelar Irbesartan 1t po qd 90tabs Jeremy Lutz 01/21/2013 300mg Tablets MD Julio Cesar Omeprazole 1 po twice a 30caps Jeremy Lutz 01/21/[address] doris Harrell MD Viagra prn 15taJeremy Alfaro 10/15/2008 50mg Tablets MD Julio Cesar Minocycline HCL 1 by mouth Unknown 50mg Tablets twice a day, prn Immunizations CPT Code Status Date Vaccine Lot # [id number] Given 02/08/2019 Influenza,Unspecified [id number] Refused 01/25/2015 Pneumococcal Immunization Vital Signs Date Vital Result Comment 02/13/2019 1:33pm BP Systolic Right Arm 130 mmHg BP Diastolic Right Arm 70 mmHg Heart Rate 60 /min Weight 199.00 lb Height 70 inches 5'10" BMI (Body Mass Index) 28.6 kg/m2 High Density Lipid 41 Low Density Lipid 78 01/23/19 Triglycerides 91 Total Cholesterol 137 BSA (Body Surface Area) 2.08 m2 09/07/2016 8:40am BP Systolic Left Arm 142 mmHg BP Diastolic Left Arm 60 mmHg Heart Rate 60 /min Weight 207.00 lb Height 70 inches 5'10" BMI (Body Mass Index) 29.7 kg/m2 High Density Lipid 39 Low Density Lipid 80 Triglycerides 99 Total Cholesterol 139 Lipids done 08/16/16 BSA (Body Surface Area) 2.12 m2 Results Description No Information Available Procedures Date Code Description Status 02/13/2019 03552 Complete ECHO Completed Medical Devices Description No Information Available Encounters Type Date Location Provider Dx Diagnosis Office Visit 02/13/2019 [facility] E78.2 Mixed hyperlipidemia [facility] Efe I10 Essential (primary) hypertension I34.9 Nonrheumatic mitral valve disorder, unspecified Z71.3 Dietary counseling and surveillance Assessments Date Code Description Provider 02/13/2019 I34.0 Nonrheumatic mitral (valve) insufficiency Efe Oliva 02/13/2019 I34.0 Nonrheumatic mitral (valve) insufficiency Meghana D 02/13/2019 E78.2 Mixed hyperlipidemia Efe Oliva 02/13/2019 I10 Essential (primary) hypertension Efe Oliva 02/13/2019 I34.9 Nonrheumatic mitral valve disorder, Efe Oliva unspecified 02/13/2019 Z71.3 Dietary counseling and surveillance Efe Oliva Plan of Treatment No Information Available Functional Status Description No Information Available Mental Status Description No Information Available Referrals Description No Information Available
[2019-03-09 14:24] VITALS: BP 131/53
--- NOTE | 2019-03-09 14:38 | ED ---
Respiratory - HPI Summary HPI Summary: 78 yr old male with the complaint of right side chest gurgle, wheeze. He states he is coughing. He initially had runny nose, but now just cough with feeling of gurgle in the right side. No fever or chills. No SOB. No other complaints. - History of Current Complaint Chief Complaint: UCGeneralIllness Stated Complaint: COUGH Time Seen by Provider: 03/09/19 14:27 Pain Intensity: 0 - Allergy/Home Medications Allergies/Adverse Reactions: Allergies Allergy/AdvReac Type Severity Reaction Status Date / Time Sulfa (Sulfonamide Allergy Unknown Verified 03/09/19 14:19 Antibiotics) Reaction Details PMH/Surg Hx/FS Hx/Imm Hx Cardiovascular History: Reports: Hx Hypertension - Surgical History Surgery Procedure, Year, and Place: R shoulder. R great toe Infectious Disease History: No Infectious Disease History: Denies: Traveled Outside the [place] in Last 30 Days - Family History Known Family History: Positive: Diabetes Negative: Cardiac Disease, Hypertension - Social History Occupation: Retired Alcohol Use: Weekly Substance Use Type: Reports: None Smoking Status (MU): Former Smoker Review of Systems Constitutional: Negative Positive: Nasal Discharge Positive: Cough All Other Systems Reviewed And Are Negative: Yes Physical Exam Triage Information Reviewed: Yes Vital Signs On Initial Exam: Initial Vitals Temp Pulse Resp BP Pulse Ox 98.9 F 63 18 131/53 97 03/09/19 14:21 03/09/19 14:21 03/09/19 14:21 03/09/19 14:21 03/09/19 14:21 Vital Signs Reviewed: Yes Appearance: Positive: Well-Appearing, No Pain Distress Skin: Positive: Warm, Skin Color Reflects Adequate Perfusion Head/Face: Positive: Normal Head/Face Inspection Eyes: Positive: EOMI ENT: Positive: Nasal congestion, Nasal drainage, Sinus tenderness Neck: Positive: Nontender Respiratory/Lung Sounds: Positive: Rhonchi - right side chest upper anterior chest with ronchi on inspiration.. Negative: Stridor Cardiovascular: Positive: RRR. Negative: Murmur Abdomen Description: Negative: Distended Musculoskeletal: Positive: Strength/ROM Intact. Negative: Edema Left, Edema Right Neurological: Positive: Sensory/Motor Intact, Alert, Oriented to Person Place, Time, CN Intact II-III, Normal Gait, Speech Normal Psychiatric: Positive: Normal Diagnostics - Vital Signs Vital Signs Temp Pulse Resp BP Pulse Ox 03/09/19 14:21 98.9 F 63 18 131/53 97 - Laboratory Lab Statement: Any lab studies that have been ordered have been reviewed, and results considered in the medical decision making process. - Radiology chest pa lat Radiology Interpretation Completed By: Radiologist - jarrett Disposition - Course Course Of Treatment: 78 yr old with sinusitis, and acute bronchitis. Rx with Augmentin, prednisone and albuterol. FU with PMD. - Diagnoses Provider Diagnoses: Sinusitis, Acute bronchitis Discharge ED - Sign-Out/Discharge Documenting (check all that apply): Patient Departure All imaging exams completed and their final reports reviewed: Yes - Discharge Plan Condition: Good Disposition: HOME Prescriptions: Albuterol HFA INHALER* [Ventolin HFA Inhaler*] 1 - 2 puff INH Q6H PRN #1 mdi PRN Reason: Cough Amoxicillin/Clavulanate TAB* [Augmentin TAB 875*] 875 mg PO BID #20 tab predniSONE TAB* [Deltasone 20 MG TAB*] 40 mg PO DAILY #10 tab Patient Education Materials: Acute Bronchitis (ED), Sinusitis (ED) Referrals: Carlin Ramsey DO [Primary Care Provider] - 2 Days - Billing Disposition and Condition Condition: GOOD Disposition: Home
== END 2019-03-09 15:23 | disposition home or self-care (01) ==
LOC: UCCORT 13:47
DX: J32.9 Chronic sinusitis, unspecified (principal); J20.9 Acute bronchitis, unspecified; I10 Essential (primary) hypertension; Z87.891 Personal history of nicotine dependence; Z88.2 Allergy status to sulfonamides
CPT/HCPCS: 71046; 99212; G0463